=== PATIENT | female | born 1995 | race African-American/Black ===

== ENCOUNTER 2024-09-08 06:36 | Emergency (ER) | payer OTHER ==
[~2024-09-08] VITALS: Ht 172.7 cm; Wt 68.0 kg
[2024-09-08 06:42] VITALS: O2SAT 99
[2024-09-08] MEDS: ASPIRIN 325MG EC TABLET PO ONE (09:41)
[2024-09-08] MEDS: KETOROLAC 15MG/ML VIAL IV ONE (09:41)
[2024-09-08] MEDS ORDERED: BENZ1LOZ73 MT (09:57)
[2024-09-08] MEDS ORDERED: IBUP-2029 MT (09:57)
[2024-09-08 10:00] VITALS: BP 105/63; PULSE 83; RESP 18; TEMP 36.6; O2SAT 99
== END 2024-09-08 11:07 | disposition home or self-care (01) ==
LOC: ER 07:32
DX: J04.0 Acute laryngitis (principal); B97.89 Other viral agents as the cause of diseases classified elsewhere; I10 Essential (primary) hypertension; R07.89 Other chest pain
CPT/HCPCS: 99283; 96374; 71045; 93005; J1885